=== PATIENT | male | born 1970 | race Caucasian/White ===

== ENCOUNTER 2020-01-27 21:27 | Emergency (ER) | payer OTHER ==
[~2020-01-27] VITALS: Ht 177.8 cm; Wt 75.0 kg
[2020-01-27 22:39] LABS: BASOPHILS # (AUTO) 0.09 x10^3/uL (0-0.1); BASOPHILS % (AUTO) 1 % (0-1); EOSINOPHILS # (AUTO) 0.14 x10^3/uL (0-0.4); EOSINOPHILS % (AUTO) 1 % (1-7); LYMPHOCYTES # (AUTO) 2.07 x10^3/uL (1-3.4); LYMPHOCYTES % (AUTO) 16 % (22-44); MD NO; MEAN PLATELET VOLUME 7.7 fL (7.4-10.4); MONOCYTES % (AUTO) 9 % (2-9); NEUTROPHILS # (AUTO) 9.34 x10^3/uL (1.8-6.8); NEUTROPHILS % (AUTO) 73 % (42-75); PLATELET COUNT 256 x10^3/uL (130-400); RED BLOOD COUNT 4.86 x10^6/uL (4.38-5.82); RED CELL DISTRIBUTION WIDTH 12.7 % (9.4-14.8)
[2020-01-27 22:51] LABS: ALANINE AMINOTRANSFERASE 26 U/L (12-78); ALBUMIN 3.7 g/dL (3.4-5.0); ANION GAP 9 mmol/L (5-15); CALCIUM 9.1 mg/dL (8.5-10.1); CHLORIDE 104 mmol/L (98-107); CREATININE 1.67 mg/dL (0.7-1.3)
[2020-01-27 22:53] LABS: ALKALINE PHOSPHATASE 107 U/L (45-117); BILIRUBIN,TOTAL 0.7 mg/dL (0.2-1.0); TOTAL PROTEIN 7.6 g/dL (6.4-8.2)
--- NOTE | 2020-01-27 22:53 | NUR ---
PT TO ROOM FROM LOBBY
[2020-01-27] MEDS ORDERED: KETOROLAC 30 MG/1 ML ONE (23:03)
[2020-01-27] MEDS ORDERED: ONDANSETRON 2MG/ML, 2ML ONE (23:04)
[2020-01-27] MEDS ORDERED: MORPHINE SULFATE 4 MG/ML, 1ML ONE (23:04)
--- NOTE | 2020-01-27 23:14 | NUR ---
IV ESTABLISHED, PT MEDICATED PER EMAR. 5 RIGHTS ADDRESSED.
--- NOTE | 2020-01-27 23:19 | NUR ---
PT EDUCATED ON THE NEED FOR UA. URINAL PROVIDED
[2020-01-27] MEDS ORDERED: KETOROLAC 30 MG/1 ML IVPush ONE (23:30)
[2020-01-27] MEDS ORDERED: SODIUM CHLORIDE FLUSH 10ML SYR IVF ONE (23:30)
[2020-01-27] MEDS ORDERED: MORPHINE SULFATE 4 MG/ML, 1ML IVPush PRN (23:30)
[2020-01-27] MEDS ORDERED: ONDANSETRON 2MG/ML, 2ML IVPush ONE (23:30)
[2020-01-27] MEDS ORDERED: SODIUM CHLORIDE 0.9% 1,000ML IVBOLUS ONE (23:30)
[2020-01-27] MEDS ORDERED: TAMSULOSIN 0.4 MG CAP.ER.24H ONE (23:47)
[2020-01-28] MEDS ORDERED: TAMSULOSIN 0.4 MG CAP.ER.24H PO ONE
--- NOTE | 2020-01-28 00:02 | NUR ---
PT MEDICATED PER EMAR, 5 RIGHTS ADDRESSED. PT STILL HAS NOT PROVIDED URINE SAMPLE. EDUCATED AGAIN ON THE NEED FOR THIS SOON POSSIBLE. PT VERBALIZES UNDERSTANDING
--- NOTE | 2020-01-28 00:36 | NUR ---
UA PROVIDED BY PT. SMALL AMOUNT. DARK IN COLOR. PT REPORTS RELIEF FROM PAIN. RESTING QUIETLY ON GURNEY. NO DISTRESS NOTED. VITALS STABLE. UA COLLECTED AND SENT TO LAB
[2020-01-28 00:48] LABS: MICROSCOPIC NOT IND
[2020-01-28 00:53] LABS: CULTURE INDICATED? NO
--- NOTE | 2020-01-28 01:51 | NUR ---
PT SLEEPING. NO DISTRESS NOTED. ALL VITALS STABLE. CHART UP FOR RECHECK
[2020-01-28 02:15] VITALS: BP 146/86
--- NOTE | 2020-01-28 02:57 | NUR ---
Patient/Caregiver given discharge instructions and they have confirmed that they understand the instructions. Patient ambulatory with steady gait.
== END 2020-01-28 02:59 | disposition home or self-care (01) ==
LOC: ED 22:58
DX: N13.2 Hydronephrosis with renal and ureteral calculous obstruction (principal)
CPT/HCPCS: 36415; 74176; 80053; 81003; 85025; 96374; 96375; 99285; J1885; J2270; J2405; J7030

== ENCOUNTER 2020-05-11 10:20 | Emergency (ER) | payer MEDICAID, OTHER ==
[~2020-05-11] VITALS: Ht 177.8 cm; Wt 75.5 kg
[2020-05-11 10:23] VITALS: BP 146/95
--- NOTE | 2020-05-11 10:38 | NUR ---
PT CAME IN CO OF PAINFUL URINATION
[2020-05-11] MEDS ORDERED: AZITHROMYCIN 500 MG TABLET ONE (10:51)
[2020-05-11] MEDS ORDERED: CEFTRIAXONE 1,000 MG ONE (10:51)
[2020-05-11] MEDS ORDERED: AZITHROMYCIN 500 MG TABLET PO ONE (11:00)
[2020-05-11] MEDS ORDERED: CEFTRIAXONE 250 MG IM ONE (11:00)
== END 2020-05-11 11:35 | disposition home or self-care (01) ==
LOC: ED 11:28
DX: N34.2 Other urethritis (principal); Z20.2 Contact with and (suspected) exposure to infections with a predominantly sexual mode of transmission
CPT/HCPCS: 87491; 87591; 96372; 99283; J0696